=== PATIENT | female | born 1990 | race Two or more races ===

== ENCOUNTER → 2024-12-08 | Outpatient (CLI) | payer OTHER, SELFPAY ==
--- NOTE | 2024-12-08 15:30 | XR_ITS ---
Examination: Breast ultrasound complete, bilateral Date and time of exam: December 08, 2024 1527 hrs. Indications: Right breast pain beginning 5 days ago, most noted in both breasts on clinical breast examination by physician this week Technique: Real-time grayscale ultrasonographic imaging bilateral breasts, including all 4 quadrants as well as nipple retroareolar and axillary regions. Findings: Sonographic images right breast. 5:00 cyst 3 x 4 mm 11:00 cyst 5 x 5 mm No solid nodules Sonographic images left breast 6:00 oval mass circumscribed 5 x 4 mm 7:00 oval mass circumscribed 6 x 6 mm Impression: BI-RADS Category 2: Benign findings One additional 6 month left breast sonogram follow-up is needed to document stability of solid nodules described above.
== END | disposition home or self-care (01) ==
PROVIDERS: PCP Nurse Practitioner Family; Referring Provider Nurse Practitioner Family; Visit Provider Nurse Practitioner Family
DX: N63.25 Unspecified lump in the left breast, overlapping quadrants (principal); N63.24 Unspecified lump in the left breast, lower inner quadrant; Z80.3 Family history of malignant neoplasm of breast
CPT/HCPCS: 76641